=== PATIENT | male | born 1945 | race Caucasian/White ===

== ENCOUNTER 2020-06-10 11:38 | Emergency (ER) | payer OTHER ==
--- NOTE | 2020-06-10 12:25 | EKG REPORT ---
SEVERITY:- ABNORMAL ECG - SINUS RHYTHM FIRST DEGREE AV BLOCK RBBB AND LAFB : Confirmed by: Laith Lantigua MD 10-Jun-2020 12:25:05
[2020-06-10] MEDS ORDERED: NORMAL SALINE 1000 ML 1,000 ML IV ONE ×2 (12:49→15:15)
[2020-06-10 12:52] LABS: ABSOLUTE BASOPHILS # (AUTO) 0.1 10^3/uL (0.0-0.2); ABSOLUTE EOSINOPHILS # (AUTO) 0.6 10^3/uL (0.0-0.6); ABSOLUTE LYMPHOCYTES (AUTO) 1.8 10^3/uL (0.5-4.7); ABSOLUTE MONOCYTES (AUTO) 0.7 10^3/uL (0.1-1.4); ABSOLUTE NEUT (AUTO) 5.1 10^3/uL (1.7-8.2); BASOPHILS % (AUTO) 0.9 % (0-2); EOSINOPHILS % (AUTO) 7.4 % (0-6); HEMATOCRIT 40.2 % (37.9-51.0); HEMOGLOBIN 14.5 g/dL (13.5-17.0); LYMPHOCYTES % (AUTO) 22.3 % (13-45); MEAN CORPUSCULAR HEMOGLOBIN 32.2 pg (27.0-33.4); MEAN CORPUSCULAR HGB CONC 36.1 g/dL (32.0-36.0); MEAN CORPUSCULAR VOLUME 89 fl (80-97); PLATELET COUNT 156 10^3/uL (150-450); RED BLOOD COUNT 4.51 10^6/uL (4.35-5.55); RED CELL DISTRIBUTION WIDTH 15.2 % (11.5-14.0); SEGMENTED NEUTROPHILS % (AUTO) 61.4 % (42-78); TOTAL CELLS COUNTED % (AUTO) 100 %; WHITE BLOOD COUNT 8.2 10^3/uL (4.0-10.5)
[2020-06-10] MEDS ORDERED: METOCLOPRAMIDE HCL INJ/PF 10 MG/2 ML SDV IV ONE (12:52)
[2020-06-10 13:11] LABS: ALBUMIN 4.6 g/dL (3.5-5.0); ALKALINE PHOSPHATASE 64 U/L (38-126); ANION GAP 10 (5-19); ASPARTATE AMINO TRANSFERASE 32 U/L (17-59); BILIRUBIN,DIRECT 0.2 mg/dL (0.0-0.4); BILIRUBIN,TOTAL 1.2 mg/dL (0.2-1.3); BLOOD UREA NITROGEN 26 mg/dL (7-20); CARBON DIOXIDE 27 mmol/L (22-30); CHLORIDE 105 mmol/L (98-107); CREATINE KINASE 494 U/L (55-170); GLUCOSE 115 mg/dL (75-110); POTASSIUM 4.7 mmol/L (3.6-5.0); TOTAL PROTEIN 7.5 g/dL (6.3-8.2)
[2020-06-10 13:22] LABS: CREATINE KINASE MB 7.21 ng/mL (<4.55); TROPONIN I 0.012 ng/mL
[2020-06-10 13:51] LABS: PROTHROMBIN TIME 20.1 SEC (11.4-15.4)
[2020-06-10 14:05] LABS: PARTIAL THROMBOPLASTIN TIME 39.2 SEC (23.5-35.8)
[2020-06-10 14:08] LABS: D-DIMER < 0.27 ug/mL (0.00-0.50)
--- NOTE | 2020-06-10 15:21 | RADIOLOGY REPORT (SQ) ---
EXAM DESCRIPTION: CHEST SINGLE VIEW IMAGES COMPLETED DATE/TIME: 06/10/2020 3:11 pm REASON FOR STUDY: cp COMPARISON: None. EXAM PARAMETERS: NUMBER OF VIEWS: One view. TECHNIQUE: Single frontal radiographic view of the chest acquired. RADIATION DOSE: NA LIMITATIONS: None. FINDINGS: LUNGS AND PLEURA: No opacities, masses or pneumothorax. No pleural effusion. MEDIASTINUM AND HILAR STRUCTURES: No masses. Contour normal. HEART AND VASCULAR STRUCTURES: Mild cardiomegaly and central vascular congestion. BONES: No acute findings. HARDWARE: Midline surgical changes. OTHER: No other significant finding. IMPRESSION: No discrete radiographic evidence of acute cardiopulmonary abnormality. Mild cardiomega ly and central vascular congestion without evidence of pulmonary edema. TECHNICAL DOCUMENTATION: JOB ID: [id number] 2010 [employer]- All Rights Reserved Reading location - IP/workstation name: [email or web address]
[2020-06-10 15:24] LABS: APPEARANCE,URINE CLEAR; BILIRUBIN,URINE NEGATIVE (NEGATIVE); COLOR,URINE STRAW; GLUCOSE, URINE NEGATIVE (NEGATIVE); KETONES,URINE NEGATIVE (NEGATIVE); PROTEIN,URINE NEGATIVE (NEGATIVE); URINE SPECIFIC GRAVITY 1.008; UROBILINOGEN,URINE NEGATIVE mg/dL (<2.0)
--- NOTE | 2020-06-10 15:24 | ER Document Report ---
ED General - General Chief Complaint: Chest Pain > 30 Stated Complaint: NAUSEA,VOMITING,RIGHT SIDE FLANK PAIN Time Seen by Provider: 06/10/20 12:51 Primary Care Provider: MARYSE OTT [Primary Care Provider] - Follow up as needed - HPI Notes: Chief complaint: Weakness and transient chest pain History of present illness: 75-year-old male with past history of Aortic valve replacement and CAD with prior stent placements and prior UT resents for evaluation of chest pain and weakness. This gentleman drove here 2 days ago from [place], [place] to visit his brother. Patient states that while he was driving he started having 4/10 pain under his left breast that radiates up into his left shoulder and armpit. He states that the area is been slightly sore since and although he has had no recurrence of severe discomfort. Patient reports several other symptoms present since he made his trip he has had onset of several other new symptoms including insomnia, episodes of nausea with dry heaves, dull headache, and multiple episodes of watery diarrhea associated with fatigue. Patient denies chest pain at this time. He has not experienced any syncope. - Related Data Allergies/Adverse Reactions: No Known Allergies Allergy (Verified 06/10/20 12:47) Home Medications: carvedilol, allopurinol, amlodipine, finasteride, atorvastatin, tramadol, trazodone, lisinopril, vit D, omeprazole, oxybutynin Past Medical History - General Information source: Patient - Social History Smoking Status: Never Smoker Frequency of alcohol use: None Drug Abuse: None Family History: Reviewed & Not Pertinent - Past Medical History Cardiac Medical History: Reports: Hx Heart Attack, Hx Hypercholesterolemia, Hx Hypertension Endocrine Medical History: Reports: Hx Diabetes Mellitus Type 2 Psychiatric Medical History: Reports: Hx Depression Past Surgical History: Reports: Hx Cardiac Surgery - stentsx2, heart valve replacement Review of Systems - Review of Systems Notes: Constitutional: Intermittent low-grade fever. HENT: Negative for sore throat. Denies loss of taste or smell. Eyes: Negative for visual changes. Cardiovascular: As per HPI. Respiratory: No sputum production or hemoptysis. Gastrointestinal: As per HPI. Genitourinary: Negative for dysuria. Musculoskeletal: Negative for back pain. Skin: Negative for rash. Neurological: As per HPI. No focal weakness or numbness. 10 point ROS negative except as marked above and in HPI. Physical Exam - Vital signs Vitals: Temp Pulse Resp BP Pulse Ox 98.4 F 73 20 126/74 H 97 06/10/20 11:47 06/10/20 11:47 06/10/20 11:47 06/10/20 11:47 06/10/20 11:47 - Notes Notes: GENERAL: Well-developed well-nourished male approximately stated age appearing weak and mildly dehydrated. SKIN: Pale. Mildly diaphoretic. No rashes. HEAD: Normocephalic atraumatic. EYES: PERRLA. EOMI. Conjunctivae and sclerae clear. EARS: CANALS AND TMS CLEAR. NOSE: CLEAR. MOUTH: Moist mucosa. Good dentition. No stridor or edema. No drooling. NECK: Supple. No masses or thyromegaly. No adenopathy. Carotids 2+ without bruits. No JVD. BACK: Symmetrical without tenderness. CHEST: Respirations unlabored. Breath sounds clear and symmetrical. HEART: Regular rhythm. No murmur gallop or rub. ABDOMEN: Soft, mildly obese, nontender without masses, organomegaly or rebound. Bowel sounds normally active. No bruits. GENITALIA: Deferred. EXTREMITIES: Trace bilateral pretibial edema. No calf tenderness. Cap refill less than 1.5 seconds. Dorsalis pedis and posterior tibial pulses 3+ and symmetrical. NEUROLOGICAL: GCS 15. Alert and oriented x3. Fluent speech. Cranial nerves II through XII intact. Sensorimotor and cerebellar normal. Normal tone. PSYCHIATRIC: Appropriate affect. Course - Re-evaluation Re-evalutation: 06/10/20 15:39 Patient received 1 L normal saline. He feels much better at this time and is essentially asymptomatic. He is receiving a second liter of fluids as we speak and is taking oral fluids well. His first troponin was negative and will get a second troponin on him 3 hours after the first. I am also repeating an EKG. His d-dimer was normal. Case findings have been reviewed with the on-call sleeve sewer, Dr. Dc who feels this man can safely be discharged with additional rehydration if his second troponin is negative and there are no new changes on EKG. 06/10/20 16:06 Second EKG shows persistent sinus bradycardia which dips down into the 40s at rest. He goes up into the 70s when he gets up and moves around. He feels fine at this time is taking oral fluids without any difficulty. Second troponin will be reviewed prior to discharge. 06/10/20 16:10 Findings, clinical impression and plan of treatment have been discussed with patient/family. Understanding of current findings and recommendations has been acknowledged by them and there is agreement regarding disposition and follow-up. - Vital Signs Vital signs: Temp Pulse Resp BP Pulse Ox 98.4 F 73 19 117/78 98 06/10/20 11:47 06/10/20 11:47 06/10/20 15:01 06/10/20 15:01 06/10/20 15:01 - Laboratory Result Diagrams: 06/10/20 12:30 06/10/20 12:30 Laboratory results interpreted by me: 06/10/20 06/10/20 06/10/20 12:30 12:30 12:30 MCHC 36.1 H RDW 15.2 H Eos % (Auto) 7.4 H PT APTT BUN 26 H Creatinine 1.71 H Est GFR ( Amer) 48 L Est GFR (MDRD) Non-Af 39 L Glucose 115 H Creatine Kinase 494 H CK-MB (CK-2) 7.21 H NT-Pro-B Natriuret Pep 06/10/20 06/10/20 06/10/20 12:30 15:15 15:15 MCHC RDW Eos % (Auto) PT 20.1 H APTT 39.2 H BUN Creatinine Est GFR ( Amer) Est GFR (MDRD) Non-Af Glucose Creatine Kinase 380 H CK-MB (CK-2) NT-Pro-B Natriuret Pep 157 H - Diagnostic Test Radiology reviewed: Reports reviewed - Portable chest x-ray per radiologist: Cardiomegaly mild central vascular congestion no focal infiltrates. - EKG Interpretation by Me Additional EKG results interpreted by me: 06/10/20 15:31 Twelve-lead EKG reviewed by me contemporaneously: 1210 hrs. Indication for study: Weakness Rhythm: Sinus bradycardia with first-degree AV block. 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 Rate: 59 Intervals:QT prolongation at 332 ms. QRS prolongation 182 ms. QRS axis: -[address]/T wave changes: Shallow T wave inversions in V5 and V6. No acute ST shift. Comparison with prior tracing: No local tracing available. Outside EKG requested. Interpretation: Sinus bradycardia, degree AV block. Bifascicular block. Nonspecific anterolateral T wave changes possibly ischemic. Discharge - Discharge Clinical Impression: Dehydration, Acute viral syndrome Condition: Stable Disposition: HOME, SELF-CARE Additional Instructions: Increase oral fluids. Take medication as needed for nausea. Continue all of your current medications. Return here as needed for new or worsening symptoms: Pain that is worsening or unimproved Uncontrolled vomiting High fever or shaking chills Overall worsening You have been provided the name of a local sleeve sewer whom you may follow-up for any additional problems while you were here. Otherwise check him with your family doctor when you return to [place]. Prescriptions: Ondansetron [Zofran Odt 4 mg Tablet] 1 - 2 tab PO Q4H PRN #15 tab.rapdis PRN Reason: For Nausea/Vomiting Referrals: LOCAL,NO [Primary Care Provider] - Follow up as needed TEN DC MD [ACTIVE STAFF] - Follow up as needed
[2020-06-10 16:21] VITALS: BP 128/74
--- NOTE | 2020-06-10 18:16 | EKG REPORT ---
SEVERITY:- ABNORMAL ECG - SINUS BRADYCARDIA FIRST DEGREE AV BLOCK RBBB AND LAFB : Confirmed by: Laith Lantigua MD 10-Jun-2020 18:15:40
[2020-06-10 19:50] LABS: APPEARANCE,URINE CLEAR; BILIRUBIN,URINE NEGATIVE (NEGATIVE); COLOR,URINE YELLOW; GLUCOSE, URINE NEGATIVE (NEGATIVE); KETONES,URINE NEGATIVE (NEGATIVE); LEUKOCYTE ESTERASE,URINE NEGATIVE (NEGATIVE); NITRITE,URINE NEGATIVE (NEGATIVE); PROTEIN,URINE NEGATIVE (NEGATIVE); UROBILINOGEN,URINE NEGATIVE mg/dL (<2.0)
== END 2020-06-10 17:42 | disposition home or self-care (01) ==
LOC: ER 11:38
DX: B34.9 Viral infection, unspecified (principal); R07.9 Chest pain, unspecified; E86.0 Dehydration; R53.1 Weakness; R00.1 Bradycardia, unspecified; I11.9 Hypertensive heart disease without heart failure; I45.2 Bifascicular block; I44.0 Atrioventricular block, first degree; I25.2 Old myocardial infarction; I25.10 Atherosclerotic heart disease of native coronary artery without angina pectoris; G47.00 Insomnia, unspecified; R60.0 Localized edema; R11.0 Nausea; R23.1 Pallor; R61 Generalized hyperhidrosis; R19.7 Diarrhea, unspecified; R53.83 Other fatigue; R51.9 Headache, unspecified; F32.9 Major depressive disorder, single episode, unspecified; E11.9 Type 2 diabetes mellitus without complications; E78.00 Pure hypercholesterolemia, unspecified; Z79.899 Other long term (current) drug therapy; Z95.2 Presence of prosthetic heart valve; Z95.5 Presence of coronary angioplasty implant and graft; Z20.828 Contact with and (suspected) exposure to other viral communicable diseases
CPT/HCPCS: 93005; 99285; 96361; 96374; 36415; 82553; 82550; 83735; 85025; 85610; 85730; 87635; 80053; 81001; 84484; 85379; 83880; 71045; 93010; J2765; J7030; C9803